=== PATIENT | male | born 1965 | race Caucasian/White ===

== ENCOUNTER → 2017-05-29 | Outpatient (CLI) | payer OTHER ==
[~2017-05-29] MED LIST: METO-169; OMEP20TA
== END | disposition home or self-care (01) ==
LOC: Rad HDHVI 15:39
PROVIDERS: ATTEND Internal Medicine Cardiovascular Disease
DX: I35.1 Nonrheumatic aortic (valve) insufficiency (principal)
CPT/HCPCS: 93306

== ENCOUNTER 2018-05-28 19:48 | Inpatient (IN) | payer OTHER ==
[~2018-05-28] VITALS: Ht 167.6 cm; Wt 102.3 kg
[2018-05-28 21:27] LABS: Basophils # (auto) 0 uL; White Blood Cell 7.4 10^3/uL (4.4-10.8)
[2018-05-28 21:29] LABS: Basophils % (auto) 0.4 % (0.0-2.0); Eosinophils # (auto) 0 uL; Eosinophils % (auto) 0.6 % (0.0-7.0); Hematocrit 52.9 % (41.0-53.0); Hemoglobin 18.1 g/dL (13.5-17.5); Lymphocytes # (auto) 1.1 uL; Lymphocytes % (auto) 15.4 % (10.0-50.0); Mean Corpuscular Hemoglobin 32.8 pg (28.0-32.0); Mean Corpuscular Hgb Conc. 34.2 g/dL (32.0-36.0); Mean Corpuscular Volume 95.8 fL (80.0-100.0); Monocytes # (auto) 0.7 uL; Neutrophils # (auto) 5.5 uL; Neutrophils % (auto) 73.6 % (37.0-80.0); Nucleated Red Blood Cells % 0.2 %; Platelet Count (auto) 216 10^3/uL (140-450); Red Blood Cells 5.52 10^6/uL (4.5-5.90); Red Cell Distribution Width 14.5 % (11.8-14.3)
[2018-05-28] MEDS ORDERED: PANTOPRAZOLE 40 MG/10 ML VIAL IV ONE (21:30)
[2018-05-28 21:34] LABS: Albumin 3.7 g/dL (3.4-5.0); Anion Gap 4 (5-15); Blood Urea Nitrogen 16 mg/dL (7-18); Calcium 9.7 mg/dL (8.5-10.1); Carbon Dioxide 31 mmol/L (21-32); Chloride 102 mmol/L (98-107); Glucose 96 mg/dL (74-106); Potassium 4.2 mmol/L (3.5-5.1); Sodium 137 mmol/L (136-145)
[2018-05-28 21:39] LABS: Alanine Aminotransferase 42 U/L (16-61); Alkaline Phosphatase 52 U/L (45-117); Aspartate Aminotransferase 35 U/L (15-37); BUN/Creatinine Ratio 9.6; Bilirubin, Total 0.7 mg/dL (0.2-1.0); GFR African American 56 mL/min; GFR Non-African American 46 mL/min; Total Protein 7.9 g/dL (6.4-8.2)
[2018-05-28 21:58] LABS: INR 1.16 (0.9-1.15); Partial Thromboplastin Time 24.4 sec (23.78-33.04); Prothrombin Time 12.3 sec (9.27-12.13)
[2018-05-29] VITALS (7 sets, daily range): BP systolic 124–147; BP diastolic 74–84
[2018-05-29] MEDS ORDERED: cloNIDine HCL 0.1 MG TAB PO PRN (01:15)
[2018-05-29] MEDS ORDERED: LORazepam 2MG/ML-1ML VIAL IV ONE (01:15)
[2018-05-29] MEDS ORDERED: TEMAZEPAM 15 MG CAP PO PRN (01:15)
[2018-05-29] MEDS ORDERED: ONDANSETRON HCL 4 MG/2 ML VIAL IV PRN (01:15)
[2018-05-29 01:45] LABS: Hematocrit 48.5 % (41.0-53.0); Hemoglobin 16.6 g/dL (13.5-17.5)
--- NOTE | 2018-05-29 02:00 | NUR ---
MS admit from ER JAIMIE BUNCH admitted to tele/MS. Patient oriented to Ave eisenberg RN, unit, room, bed, and unit policies regarding patient care and visiting hours. Patient encouraged to call if he needs something. All questions and concerns addressed, patient verbalized understanding.
[2018-05-29] MEDS: ACETAMINOPHEN 325 MG TAB PO PRN ×2 (03:00→22:03)
[2018-05-29] MEDS ORDERED: HYDROcodone-ACET 5/325MG TAB PO ONE (04:00)
--- NOTE | 2018-05-29 07:35 | NUR ---
Opening Shift Note Assumed care of patient, asleep but easily aroused. No S/S of distress/SOB or pain. Instructed on POC and to call for assist PRN, will continue to monitor for changes Q1hr and PRN.
[2018-05-29] MEDS: TRIAMTERENE/HCTZ 75/50MG TABLET PO SCH (09:10)
[2018-05-29] MEDS: METOPROLOL TARTRATE 50 MG TAB PO SCH ×2 (09:11→21:47)
[2018-05-29] MEDS ORDERED: PANTOPRAZOLE 40 MG/10 ML VIAL IV SCH (10:00)
[2018-05-29] MEDS: SODIUM CHLORIDE 0.9% 1,000 ML IV SCH (11:15)
[2018-05-29] MEDS ORDERED: SODIUM CHLORIDE LOCK 10 ML ONE (12:26)
[2018-05-29] MEDS ORDERED: LIDOCAINE VISCOUS 2% 15ML UD ONE (12:26)
[2018-05-29] MEDS ORDERED: diphenhdrAMINE HCL 50 MG/1 ML VL ONE (12:27)
--- NOTE | 2018-05-29 12:55 | NUR ---
Patient left unit for pre-op.
[2018-05-29] MEDS: fentaNYL CITRATE 100 MCG/2 ML VL ONE ×2 (13:24→13:27)
[2018-05-29] MEDS: MIDAZOLAM HCL 5 MG/ML-1ML VIAL ONE ×2 (13:24→13:27)
[2018-05-29] MEDS ORDERED: SERT-138 PO (13:35)
[2018-05-29] MEDS ORDERED: ALPR1TAB2 PO (13:35)
[2018-05-29] MEDS ORDERED: NAPR-223 PO (13:35)
[2018-05-29] MEDS ORDERED: EPINEPHrine HCL 1 MG/10 ML SYRG ONE (13:38)
--- NOTE | 2018-05-29 14:30 | NUR ---
Patient on unit from EGD. Call light within reach, patient aware nothing to eat or drink. Ice chips only.
--- NOTE | 2018-05-29 14:40 | NUR ---
Patient's blood pressure 159/84 upon return to the unit. Telephone orders received from Dr. Peter.
[2018-05-29] MEDS ORDERED: hydrALAZINE HCL 20 MG/ML VL IV PRN (15:00)
--- NOTE | 2018-05-29 15:30 | NUR ---
Blood pressure recheck 147/76. No medication given.
--- NOTE | 2018-05-29 19:30 | NUR ---
Opening Shift Note Assumed care of patient, awake and alert. No S/S of distress/SOB or pain. Pt currently laying in bed with the rails up x2, bed is locked in the lowest position and call light is within reach. Instructed on POC and to call for assist as needed. Pt has a 20ga IV in the left forearm that flushes without any discomfort. Will continue to monitor.
--- NOTE | 2018-05-29 19:30 | NUR ---
J Luis to administer PO Xanax and Tylenol per Messi. Addendum: 05/29/18 at 2159 by INESSA LAM RN Messi aware of pt being S/P EGD with clip placement x2 today.
[2018-05-29] MEDS: PANTOPRAZOLE 40 MG/10 ML VIAL IV SCH (21:47)
[2018-05-29] MEDS: ALPRAZolam 0.5 MG TAB PO PRN (22:03)
[2018-05-30] MEDS: SODIUM CHLORIDE 0.9% 1,000 ML IV SCH ×2 (03:31→21:45)
[2018-05-30 05:18] VITALS: BP 139/77
[2018-05-30 05:49] LABS: Basophils # (auto) 0 uL; Basophils % (auto) 0.6 % (0.0-2.0); Eosinophils # (auto) 0.1 uL; Eosinophils % (auto) 2.1 % (0.0-7.0); Hematocrit 49.8 % (41.0-53.0); Hemoglobin 17.1 g/dL (13.5-17.5); Lymphocytes # (auto) 1.3 uL; Lymphocytes % (auto) 22.5 % (10.0-50.0); Mean Corpuscular Hemoglobin 32.6 pg (28.0-32.0); Mean Corpuscular Hgb Conc. 34.3 g/dL (32.0-36.0); Mean Corpuscular Volume 94.9 fL (80.0-100.0); Monocytes # (auto) 0.4 uL; Monocytes % (auto) 7.5 % (0.0-12.0); Neutrophils # (auto) 3.8 uL; Neutrophils % (auto) 67.3 % (37.0-80.0); Nucleated Red Blood Cells % 0.1 %; Platelet Count (auto) 186 10^3/uL (140-450); Red Blood Cells 5.24 10^6/uL (4.5-5.90); Red Cell Distribution Width 14.6 % (11.8-14.3); White Blood Cell 5.7 10^3/uL (4.4-10.8)
[2018-05-30 06:11] LABS: Albumin 3.2 g/dL (3.4-5.0); BUN/Creatinine Ratio 8.7; Calcium 8.2 mg/dL (8.5-10.1); Potassium 3.8 mmol/L (3.5-5.1)
[2018-05-30 06:14] LABS: Bilirubin, Total 1.1 mg/dL (0.2-1.0); Total Protein 7.2 g/dL (6.4-8.2)
[2018-05-30 08:00] VITALS: BP 140/74
[2018-05-30 09:00] VITALS: BP 140/74
[2018-05-30] MEDS: PANTOPRAZOLE 40 MG/10 ML VIAL IV SCH ×2 (11:07→21:46)
[2018-05-30] MEDS: SERTRALINE HCL 50 MG TAB PO SCH (11:32)
[2018-05-30] MEDS: METOPROLOL TARTRATE 50 MG TAB PO SCH ×2 (11:33→21:46)
[2018-05-30] MEDS: TRIAMTERENE/HCTZ 75/50MG TABLET PO SCH (11:33)
--- NOTE | 2018-05-30 11:35 | NUR ---
SPOKE TO DR HUNG. PER DR HUNG OK TO GIVE MORNING MEDICATIONS. NEW ORDER RECEIVED FOR NORCO 5/325 PO Q6 PRN WILL IMPLEMENT ORDERS.
[2018-05-30 13:00] VITALS: BP 144/86
[2018-05-30] MEDS: HYDROcodone-ACET 5/325MG TAB PO PRN ×2 (13:02→18:52)
[2018-05-30] MEDS: ALPRAZolam 0.5 MG TAB PO PRN (21:47)
[2018-05-30 22:23] VITALS: BP 144/87
[2018-05-31] MEDS: HYDROcodone-ACET 5/325MG TAB PO PRN (01:14)
[2018-05-31 05:55] VITALS: BP 120/78
[2018-05-31 07:10] LABS: Basophils # (auto) 0 uL; Eosinophils # (auto) 0.1 uL; Mean Corpuscular Volume 95.2 fL (80.0-100.0); Monocytes # (auto) 0.4 uL
[2018-05-31 07:12] LABS: Basophils % (auto) 0.7 % (0.0-2.0); Eosinophils % (auto) 2.1 % (0.0-7.0); Hematocrit 52.6 % (41.0-53.0); Hemoglobin 18.3 g/dL (13.5-17.5); Lymphocytes # (auto) 1.3 uL; Lymphocytes % (auto) 23.5 % (10.0-50.0); Mean Corpuscular Hemoglobin 33.2 pg (28.0-32.0); Mean Corpuscular Hgb Conc. 34.9 g/dL (32.0-36.0); Monocytes % (auto) 7.2 % (0.0-12.0); Neutrophils # (auto) 3.7 uL; Neutrophils % (auto) 66.5 % (37.0-80.0); Platelet Count (auto) 214 10^3/uL (140-450); Red Blood Cells 5.52 10^6/uL (4.5-5.90); Red Cell Distribution Width 14.3 % (11.8-14.3); White Blood Cell 5.6 10^3/uL (4.4-10.8)
[2018-05-31 07:24] LABS: BUN/Creatinine Ratio 7.6; Calcium 8.7 mg/dL (8.5-10.1); Potassium 4.2 mmol/L (3.5-5.1)
[2018-05-31 08:00] VITALS: BP 120/78
--- NOTE | 2018-05-31 08:00 | NUR ---
Opening note Assumed care of patient awake, alert, and oriented. No S/S of distress noted or complaints of pain. Pt updated on POC and all questions answered. Bed is in lowest, locked position with side rails up X2 and call light within reach. Will continue to monitor Q1h and PRN.
[2018-05-31 09:00] VITALS: BP 137/90
[2018-05-31] MEDS: SERTRALINE HCL 50 MG TAB PO SCH (09:47)
[2018-05-31] MEDS: PANTOPRAZOLE 40 MG/10 ML VIAL IV SCH (09:47)
[2018-05-31] MEDS: METOPROLOL TARTRATE 50 MG TAB PO SCH ×2 (09:48→21:44)
[2018-05-31] MEDS: TRIAMTERENE/HCTZ 75/50MG TABLET PO SCH (09:48)
[2018-05-31 11:21] LABS: Urine Bacteria NONE SEEN /hpf (None Seen); Urine Blood Negative /uL (Negative); Urine Specific Gravity 1.004 (1.001-1.035); Urine WBC <1 /hpf (0 - 3)
[2018-05-31 13:00] VITALS: BP 134/90
[2018-05-31 17:00] VITALS: BP 132/82
--- NOTE | 2018-05-31 18:36 | NUR ---
END OF SHIFT PATIENT RESTING IN BED. NO S/S OF DISTRESS. INSTRUCTED PATIENT TO CALL PRN. BED IN LOWEST LOCKED POSITION, CALL LIGHT WITHIN REACH. ENDORSED CARE TO SALONI ODELL.
[2018-05-31] MEDS: ALPRAZolam 0.5 MG TAB PO PRN (21:44)
[2018-05-31] MEDS: PANTOPRAZOLE 40 MG TAB PO SCH (21:44)
[2018-05-31 22:00] VITALS: BP 133/83
[2018-06-01 05:53] LABS: Basophils # (auto) 0 uL; Lymphocytes # (auto) 1.5 uL
[2018-06-01 05:54] VITALS: BP 126/79
[2018-06-01 05:57] LABS: Basophils % (auto) 0.3 % (0.0-2.0); Eosinophils # (auto) 0.2 uL; Eosinophils % (auto) 2.5 % (0.0-7.0); Hematocrit 53.7 % (41.0-53.0); Hemoglobin 18.2 g/dL (13.5-17.5); Lymphocytes % (auto) 22.4 % (10.0-50.0); Mean Corpuscular Hemoglobin 32.3 pg (28.0-32.0); Mean Corpuscular Hgb Conc. 33.9 g/dL (32.0-36.0); Mean Corpuscular Volume 95.3 fL (80.0-100.0); Monocytes # (auto) 0.6 uL; Monocytes % (auto) 9.5 % (0.0-12.0); Neutrophils # (auto) 4.3 uL; Neutrophils % (auto) 65.3 % (37.0-80.0); Nucleated Red Blood Cells % 0.3 %; Platelet Count (auto) 250 10^3/uL (140-450); Red Blood Cells 5.64 10^6/uL (4.5-5.90); Red Cell Distribution Width 14.7 % (11.8-14.3); White Blood Cell 6.6 10^3/uL (4.4-10.8)
[2018-06-01 08:00] VITALS: BP 120/78
[2018-06-01 09:00] VITALS: BP 141/97
--- NOTE | 2018-06-01 09:04 | NUR ---
Opening note Assumed care of patient awake, alert, and oriented. No S/S of distress noted or complaints of pain. Pt updated on POC and all questions answered. Instructed patient to ambulate in the halls this morning. Bed is in lowest, locked position with side rails up X2 and call light within reach. Will continue to monitor Q1h and PRN
[2018-06-01] MEDS: SERTRALINE HCL 50 MG TAB PO SCH (09:22)
[2018-06-01] MEDS: TRIAMTERENE/HCTZ 75/50MG TABLET PO SCH (09:23)
[2018-06-01] MEDS: PANTOPRAZOLE 40 MG TAB PO SCH (09:23)
[2018-06-01] MEDS: METOPROLOL TARTRATE 50 MG TAB PO SCH (09:23)
--- NOTE | 2018-06-01 11:57 | NUR ---
DISCHARGE Discharge instructions given as ordered. Encourage to follow up with PMD as instructed. All questions and concerns addressed. Patient verbalized understanding. Medication reconciliation form completed and copy given to patient. IV removed with catheter intact, pressure dressing applied. Patient ambulated to vehicle with all personal belongings, accompanied by staff and family member. No distress noted at time of departure.
== END 2018-06-01 11:57 | disposition home or self-care (01) | DRG 391 ==
LOC: ER 19:48 → CENTRAL 05-29 01:25
PROVIDERS: ADMIT Nurse Practitioner; ATTEND Internal Medicine
PROC: 0W3P8ZZ Control Bleeding in Gastrointestinal Tract, Via Natural or Artificial Opening Endoscopic (ICD-10-PCS; principal; 2018-05-29 13:21)
DX: K29.70 Gastritis, unspecified, without bleeding (principal); K22.11 Ulcer of esophagus with bleeding; E86.0 Dehydration; N18.3 Chronic kidney disease, stage 3 (moderate); E66.9 Obesity, unspecified; N20.0 Calculus of kidney; I12.9 Hypertensive chronic kidney disease with stage 1 through stage 4 chronic kidney disease, or unspecified chronic kidney disease; F10.10 Alcohol abuse, uncomplicated; Z68.36 Body mass index [BMI] 36.0-36.9, adult; Z88.5 Allergy status to narcotic agent; Z79.899 Other long term (current) drug therapy
CPT/HCPCS: 36415; 43255; 71046; 74176; 80048; 80053; 81001; 82140; 82270; 83690; 84484; 85014; 85018; 85025; 85610; 85730; 86850; 86900; 86901; 93005; 94761; 96374; 96375; C9113; G0378; J2250

== ENCOUNTER → 2019-06-23 | Outpatient (CLI) | payer OTHER ==
[~2019-06-23] MED LIST changes: +ALPR1TAB2 PO; +NAPR-223 PO; +SERT50TA PO
[2019-06-23 12:26] LABS: Basophils # (auto) 0 uL; Basophils % (auto) 0.8 % (0.0-2.0); Eosinophils # (auto) 0.1 uL; Eosinophils % (auto) 2.1 % (0.0-7.0); Hematocrit 49.5 % (41.0-53.0); Lymphocytes # (auto) 1.3 uL; Mean Corpuscular Hemoglobin 32.2 pg (28.0-32.0); Mean Corpuscular Hgb Conc. 34.4 g/dL (32.0-36.0); Mean Corpuscular Volume 93.8 fL (80.0-100.0); Monocytes # (auto) 0.4 uL; Monocytes % (auto) 6.5 % (0.0-12.0); Neutrophils # (auto) 3.7 uL; Neutrophils % (auto) 67.6 % (37.0-80.0); Nucleated Red Blood Cells % 0.1 %; Platelet Count (auto) 195 10^3/uL (140-450); Red Blood Cells 5.28 10^6/uL (4.5-5.90); Red Cell Distribution Width 14.3 % (11.8-14.3); White Blood Cell 5.5 10^3/uL (4.4-10.8)
[2019-06-23 12:35] LABS: Albumin 3.5 g/dL (3.4-5.0); BUN/Creatinine Ratio 10.7; Bilirubin, Total 0.5 mg/dL (0.2-1.0); Calcium 9.2 mg/dL (8.5-10.1); Total Protein 7.4 g/dL (6.4-8.2)
== END | disposition home or self-care (01) ==
LOC: LAB 11:42
PROVIDERS: ATTEND Internal Medicine
DX: D75.1 Secondary polycythemia (principal); R93.89 Abnormal findings on diagnostic imaging of other specified body structures
CPT/HCPCS: 36415; 80053; 82105; 82668; 83615; 85025

== ENCOUNTER → 2020-08-11 | Outpatient (CLI) | payer OTHER | END | disposition home or self-care (01) | LOC: Rad HDHVI 14:58 | PROVIDERS: ATTEND Internal Medicine Cardiovascular Disease | DX: R06.02 Shortness of breath (principal); R07.9 Chest pain, unspecified | CPT/HCPCS: 93306 ==